=== PATIENT | female | born 1995 | race Caucasian/White ===

== ENCOUNTER 2017-08-15 14:53 | Emergency (ER) | payer OTHER ==
[~2017-08-15] VITALS: Ht 167.6 cm; Wt 66.0 kg
[2017-08-15 14:59] VITALS: Ht 167.6 cm; Wt 66.0 kg
[2017-08-15] MEDS ORDERED: DULO-24 PO (15:34)
[2017-08-15] MEDS ORDERED: BCPILLS PO (15:34)
[2017-08-15] MEDS ORDERED: PROPARACAINE HCL 0.5% OP SOLN 15 ML BTL OP STA (15:40)
[2017-08-15] MEDS ORDERED: AMOX875T PO (16:10)
[2017-08-15 16:52] VITALS: BP 120/83; PULSE 86; TEMP 36.9; O2SAT 96
--- NOTE | 2017-08-16 13:54 | EMERGENCY ROOM VISIT NOTE ---
ED Visit Note First contact with patient: 15:03 Chief Complaint: Cat scratch. History of Present Illness: Ms. Elliott is a 22-year-old white female who ambulates into the ED complaining of a scratch from a cat on her left upper eyelid. Patient reports approximately 1 hour ago she was lying in bed. She reports her cat was walking on an object above her face, fell off and she sustained a cat scratch from the cats claws on the left upper eyelid. Currently she is complaining of a stinging-like sensation over the left upper eyelid. She rates her discomfort 2/10. Her pain is nonradiating. Her pain worsens with palpation. She has not identified any alleviating factors related to the pain. She has not taken any medication for pain prior to arrival at the hospital. Associated with her pain she reports she has mild blurry vision. She denies headache, dizziness, lightheadedness, visual changes, tearing, eye drainage, drawing curtains, flashing lights, halos, light sensitivity. Review of Systems: As noted above in history of present illness. 8 body systems were reviewed and found to be negative as noted above. Past Medical History: Status post right tibia/fibula repair. Current Medications: Cymbalta, control. Allergies to Medications: Patient denies. Social History: Patient is currently employed; she feels safe in her home environment; she denies tobacco use and admits to alcohol use. Tetanus Immunization Status: Patient reports up-to-date. Physical Examination: Vital Signs: Date Time Temp Pulse Resp B/P (MAP) Pulse Ox O2 Delivery O2 Flow Rate FiO2 08/15/17 16:52 36.9 86 16 120/83 96 08/15/17 14:59 36.9 86 16 120/83 96 Room Air GENERAL: 22-year-old female in mild distress due to pain, nontoxic-appearing, afebrile and hemodynamically stable. NEUROLOGICAL: Awake, alert and oriented to person, place and time. Answering questions appropriately and following commands. Normal gait. Good hand eye coordination. No focal motor sensory deficits. SKIN: Warm, dry and pink. Left Upper Eyelid: Patient has a superficial scratch with minimal bleeding measuring approximately 1.8 cm. HEENT: Atraumatic and normocephalic. No tenderness, erythema, bony crepitus or deformity of the skull. PERRLA. EOMI without nystagmus. Sclera white and conjunctiva pink. No light sensitivity. No foreign bodies noted under the eyes are embedded in the cornea. The anterior chamber was clear. Sclera was white and conjunctiva pink without drainage. On slit-lamp examination with staining patient shows no corneal abrasions or injuries. Visual acuity: 20/20 bilaterally. ED Course: Patient is assessed as noted above. Patient's medication list was reviewed. Alcaine was used to anesthetize the eyes for slit-lamp examination. Patient's wound was cleansed with Betadine and sterile saline and a small amount of bacitracin dressing was applied. Patient was educated about today's findings and instructed on his treatment plan ; she verbalizes understanding and agreement with this plan. Clinical Impression: Abrasion caused by cat scratch to the left upper eyelid. Decision-Making: Initially my differential diagnosis I considered eyelid laceration/abrasion, corneal abrasion, puncture globe, and other causes. Disposition: Patient discharged home in stable condition; prior to departure she was reassessed and subjectively reported she was pain-free but will continue to have mild blurry vision. Plan: Wound care, signs of infection were discussed with the patient. Patient was prescribed Augmentin 875 mg 2 times a day for 7 days. Patient was encouraged to avoid eye makeup until resolution of abrasion. Patient was encouraged to return to the ED for any signs of infection, worsening pain or any new/concerning symptoms.
== END 2017-08-15 16:53 | disposition home or self-care (01) ==
LOC: C.EDB 14:56 → C.EDD 16:53
DX: S00.212A Abrasion of left eyelid and periocular area, initial encounter (principal); W55.03XA Scratched by cat, initial encounter